=== PATIENT | male | born 1985 | race Caucasian/White ===

== ENCOUNTER 2018-02-21 09:25 | Emergency (ER) | payer OTHER ==
[~2018-02-21] VITALS: Ht 182.9 cm; Wt 59.0 kg
[~2018-02-21 09:25] MED LIST: AUGMENTIN 875875 MG PO; BALSALAZIDE DI750 M1 PO; CARAFATE1 GM/10 ML PO; DULCOLAX STOOL100 MG PO; HYDROCODONE-APA1 TA1 PO; KEPPRA 500 MG500 M1 PO; MIRALAX17 GM PO; NORCO 5-325 TA1 EACH PO; PEPCID20 MG PO; PREDNISONE 10 M10 MG PO; SENNA-S TABLET1 EACH PO; ZOFRAN ODT4 MG PO
[2018-02-21] MEDS ORDERED: KEFLEX500 M1 PO (10:25)
== END 2018-02-21 10:38 | disposition home or self-care (01) ==
LOC: ER 09:25
DX: S61.212A Laceration without foreign body of right middle finger without damage to nail, initial encounter (principal); F17.210 Nicotine dependence, cigarettes, uncomplicated; K50.90 Crohn's disease, unspecified, without complications; W26.0XXA Contact with knife, initial encounter; Y92.89 Other specified places as the place of occurrence of the external cause; Y93.89 Activity, other specified; Y99.8 Other external cause status

== ENCOUNTER 2018-03-01 12:06 | Emergency (ER) | payer OTHER ==
[~2018-03-01] VITALS: Ht 182.9 cm; Wt 59.0 kg
[~2018-03-01 12:06] MED LIST changes: +KEFLEX500 M1 PO
== END 2018-03-01 12:36 | disposition home or self-care (01) ==
LOC: ER 12:06
DX: S61.212D Laceration without foreign body of right middle finger without damage to nail, subsequent encounter (principal); F17.210 Nicotine dependence, cigarettes, uncomplicated; X58.XXXD Exposure to other specified factors, subsequent encounter

== ENCOUNTER 2018-07-15 18:07 | Emergency (ER) | payer OTHER ==
[~2018-07-15] VITALS: Ht 182.9 cm; Wt 59.0 kg
[2018-07-15 18:40] LABS: ABSOLUTE NEUTROPHILS 4.3 thou/uL (1.4-8.2); BASOPHILS 0.4 % (0.0-2.0); EOSINOPHILS 1.1 % (0.0-3.0); HEMATOCRIT 41.9 % (42.0-52.0); HEMOGLOBIN 14.3 gm/dL (14.0-18.0); LYMPHOCYTES 29.2 % (24.0-44.0); MCH 31.8 pg (26.0-34.0); MCHC 34.1 g/dL (28.0-37.0); MONOCYTES 6.4 % (1.0-8.0); PLATELET COUNT 291 thou/uL (150-400); POLYS 62.9 % (36.0-66.0); RBC 4.51 mil/uL (4.50-6.00); RDW 13.3 % (10.5-14.5); WBC 6.8 thou/uL (4.0-11.0)
[2018-07-15 18:44] LABS: CALCIUM 9.8 mg/dL (8.5-10.1); POTASSIUM 3.6 mmol/L (3.5-5.1)
[2018-07-15 18:50] LABS: ALBUMIN 4.1 g/dL (3.4-5.0); TOTAL BILIRUBIN 1.3 mg/dL (<0.1-1.0); TOTAL PROTEIN 7.3 g/dL (6.4-8.2)
[2018-07-15] MEDS ORDERED: UNICOMPLEX M TA1 TA1 PO (18:53)
[2018-07-15] MEDS ORDERED: METHOTREXATE 22.5 MG PO (18:54)
[2018-07-15 19:38] LABS: URINE BILIRUBIN NEGATIVE (Negative); URINE BLOOD NEGATIVE (Negative); URINE CLARITY CLEAR; URINE COLOR YELLOW; URINE GLUCOSE-RANDOM* NEGATIVE (Negative); URINE KETONES NEGATIVE (Negative); URINE LEUKOCYTES-REFLEX NEGATIVE (Negative); URINE NITRITE-REFLEX NEGATIVE (Negative); URINE PROTEIN (DIPSTICK) NEGATIVE (Negative); URINE SPECIFIC GRAVITY >= 1.030 (1.005-1.035); URINE UROBILINOGEN 0.2 E.U./dl (0.2-1.0)
[2018-07-15] MEDS ORDERED: PHENERGAN 25 MG25 M1 PO (21:02)
[2018-07-15] MEDS ORDERED: NORCO 5-325 TA1 EACH PO (21:02)
[2018-07-15] MEDS ORDERED: PREDNISONE 10 M10 M1 PO (21:02)
[2018-07-15] MEDS ORDERED: ZOFRAN ODT4 MG PO (21:02)
[2018-07-15 21:14] VITALS: BP 111/79
== END 2018-07-15 21:14 | disposition home or self-care (01) ==
LOC: ER 18:07
PROVIDERS: Emergency Medicine
DX: K50.90 Crohn's disease, unspecified, without complications (principal); R11.2 Nausea with vomiting, unspecified; F17.210 Nicotine dependence, cigarettes, uncomplicated

== ENCOUNTER 2018-10-30 07:34 | Emergency (ER) | payer OTHER ==
[~2018-10-30] VITALS: Ht 182.9 cm; Wt 59.0 kg
[~2018-10-30 07:34] MED LIST changes: +METHOTREXATE 22.5 MG PO; +PHENERGAN 25 MG25 M1 PO; +PREDNISONE 10 M10 M1 PO; +UNICOMPLEX M TA1 TA1 PO
[2018-10-30 07:55] LABS: URINE BLOOD NEGATIVE (Negative); URINE CLARITY CLEAR; URINE COLOR YELLOW; URINE GLUCOSE-RANDOM* NEGATIVE (Negative); URINE KETONES NEGATIVE (Negative); URINE LEUKOCYTES-REFLEX NEGATIVE (Negative); URINE NITRITE-REFLEX NEGATIVE (Negative); URINE PROTEIN (DIPSTICK) 2+ (Negative); URINE SPECIFIC GRAVITY >= 1.030 (1.005-1.035); URINE UROBILINOGEN 0.2 E.U./dl (0.2-1.0)
[2018-10-30 07:58] LABS: ICTOTEST (BILI CONFIRMATORY) Negative (Negative); URINE BILIRUBIN NEGATIVE (Negative)
[2018-10-30 08:03] LABS: CRYSTALS None Seen /LPF (None Seen); FINE GRANULAR CASTS 0-3 Few /LPF (None Seen); HYALINE CASTS 0-3 Few /LPF (None Seen); SQUAMOUS None Seen /LPF (0-3)
[2018-10-30 08:04] LABS: BACTERIA-REFLEX 1-9 Few /HPF (None Seen); URINE WBC-REFLEX 0-5 Rare /HPF (0-5)
[2018-10-30 08:05] LABS: URINE RBC None Seen /HPF (0-2)
[2018-10-30 08:06] LABS: MUCUS 0-3 Light strn/LPF (None Seen)
[2018-10-30 08:16] LABS: ABSOLUTE NEUTROPHILS 5.5 thou/uL (1.4-8.2); BASOPHILS 0.5 % (0.0-2.0); EOSINOPHILS 1.2 % (0.0-3.0); HEMOGLOBIN 15.4 gm/dL (14.0-18.0); LYMPHOCYTES 17.3 % (24.0-44.0); MCH 32.2 pg (26.0-34.0); MCHC 34.3 g/dL (28.0-37.0); MCV 93.9 fL (80.0-100.0); MONOCYTES 4.5 % (1.0-8.0); PLATELET COUNT 300 thou/uL (150-400); POLYS 76.5 % (36.0-66.0); RBC 4.79 mil/uL (4.50-6.00); RDW 13.7 % (10.5-14.5); WBC 7.2 thou/uL (4.0-11.0)
[2018-10-30 08:24] LABS: CALCIUM 9.5 mg/dL (8.5-10.1); CREATININE 1.1 mg/dL (0.7-1.3); POTASSIUM 3.7 mmol/L (3.5-5.1)
[2018-10-30 08:30] LABS: ALBUMIN 4.2 g/dL (3.4-5.0); TOTAL PROTEIN 7.6 g/dL (6.4-8.2)
--- NOTE | 2018-10-30 09:19 | NUR ---
Nutrition: Received consult per pt request to discuss Chrons diet. Hx Chrons x 3 years and has received past education but had forgotten many aspects. RD reviewed and offered suggestions, provided materials. pt was receptive. Expect compliance.
[2018-10-30] MEDS ORDERED: BENTYL 20 MG TA20 M1 PO (10:22)
[2018-10-30] MEDS ORDERED: PREDNISONE 20 M20 MG PO (10:22)
[2018-10-30 10:29] VITALS: BP 103/71
== END 2018-10-30 10:30 | disposition home or self-care (01) ==
LOC: ER 07:34
PROVIDERS: Emergency Medicine
DX: K52.89 Other specified noninfective gastroenteritis and colitis (principal); F17.210 Nicotine dependence, cigarettes, uncomplicated

== ENCOUNTER 2019-03-22 11:47 | Emergency (ER) | payer OTHER ==
[~2019-03-22] VITALS: Ht 182.9 cm; Wt 59.0 kg
[~2019-03-22 11:47] MED LIST changes: +BENTYL 20 MG TA20 M1 PO; +PREDNISONE 20 M20 MG PO
[2019-03-22 12:24] LABS: BASOPHILS 0.8 % (0.0-2.0); EOSINOPHILS 5.5 % (0.0-3.0); HEMATOCRIT 47.1 % (42.0-52.0); HEMOGLOBIN 15.6 gm/dL (14.0-18.0); LYMPHOCYTES 34.1 % (24.0-44.0); MCH 31.8 pg (26.0-34.0); MCV 96.3 fL (80.0-100.0); PLATELET COUNT 346 thou/uL (150-400); POLYS 52.6 % (36.0-66.0); RBC 4.89 mil/uL (4.50-6.00); RDW 13.4 % (10.5-14.5); WBC 5.7 thou/uL (4.0-11.0)
[2019-03-22 12:26] LABS: CALCIUM 9.9 mg/dL (8.5-10.1); CREATININE 1.2 mg/dL (0.7-1.3); POTASSIUM 3.7 mmol/L (3.5-5.1)
[2019-03-22 12:33] LABS: ALBUMIN 4.1 g/dL (3.4-5.0); TOTAL PROTEIN 7.3 g/dL (6.4-8.2)
[2019-03-22 13:31] LABS: URINE BILIRUBIN NEGATIVE (Negative); URINE BLOOD NEGATIVE (Negative); URINE CLARITY CLEAR; URINE COLOR YELLOW; URINE GLUCOSE-RANDOM* NEGATIVE (Negative); URINE KETONES NEGATIVE (Negative); URINE LEUKOCYTES-REFLEX NEGATIVE (Negative); URINE NITRITE-REFLEX NEGATIVE (Negative); URINE PROTEIN (DIPSTICK) NEGATIVE (Negative); URINE SPECIFIC GRAVITY 1.015 (1.005-1.035); URINE UROBILINOGEN 0.2 E.U./dl (0.2-1.0)
[2019-03-22] MEDS ORDERED: PROMS25 WY RECTAL (13:45)
[2019-03-22] MEDS ORDERED: ZOFRAN ODT4 MG DISSOLVE (13:45)
[2019-03-22] MEDS ORDERED: PREDNISONE 10 M10 MG PO (13:45)
[2019-03-22 13:47] VITALS: BP 105/66
== END 2019-03-22 13:47 | disposition home or self-care (01) ==
LOC: ER 11:47
PROVIDERS: Physician Assistant
DX: K50.90 Crohn's disease, unspecified, without complications (principal); E86.0 Dehydration; R11.2 Nausea with vomiting, unspecified; R10.13 Epigastric pain; F17.210 Nicotine dependence, cigarettes, uncomplicated

== ENCOUNTER 2019-04-18 15:33 | Emergency (ER) | payer OTHER ==
[~2019-04-18] VITALS: Ht 182.9 cm; Wt 60.8 kg
[~2019-04-18 15:33] MED LIST changes: +PROMS25 WY RECTAL; +ZOFRAN ODT4 MG DISSOLVE
[2019-04-18 15:52] LABS: URINE BILIRUBIN NEGATIVE (Negative); URINE BLOOD NEGATIVE (Negative); URINE CLARITY CLEAR; URINE COLOR YELLOW; URINE GLUCOSE-RANDOM* NEGATIVE (Negative); URINE KETONES NEGATIVE (Negative); URINE LEUKOCYTES-REFLEX NEGATIVE (Negative); URINE NITRITE-REFLEX NEGATIVE (Negative); URINE PROTEIN (DIPSTICK) NEGATIVE (Negative); URINE SPECIFIC GRAVITY 1.025 (1.005-1.035); URINE UROBILINOGEN 0.2 E.U./dl (0.2-1.0)
[2019-04-18 16:25] LABS: ABSOLUTE NEUTROPHILS 5.9 thou/uL (1.4-8.2); BASOPHILS 0.4 % (0.0-2.0); EOSINOPHILS 0.5 % (0.0-3.0); HEMATOCRIT 42.2 % (42.0-52.0); HEMOGLOBIN 13.9 gm/dL (14.0-18.0); LYMPHOCYTES 25.1 % (24.0-44.0); MCH 31.3 pg (26.0-34.0); MCHC 32.9 g/dL (28.0-37.0); MCV 95.2 fL (80.0-100.0); PLATELET COUNT 294 thou/uL (150-400); RBC 4.43 mil/uL (4.50-6.00); RDW 13.4 % (10.5-14.5); WBC 8.4 thou/uL (4.0-11.0)
[2019-04-18 16:33] LABS: CALCIUM 9.4 mg/dL (8.5-10.1); POTASSIUM 4.3 mmol/L (3.5-5.1)
[2019-04-18 16:39] LABS: ALBUMIN 3.8 g/dL (3.4-5.0); TOTAL BILIRUBIN 0.4 mg/dL (<0.1-1.0); TOTAL PROTEIN 6.9 g/dL (6.4-8.2)
[2019-04-18] MEDS ORDERED: ZOFRAN ODT4 MG PO (17:33)
[2019-04-18] MEDS ORDERED: BENTYL 20 MG TA20 M1 PO (17:34)
[2019-04-18 17:55] VITALS: BP 112/67
== END 2019-04-18 17:50 | disposition home or self-care (01) ==
LOC: ER 15:33
PROVIDERS: Nurse Practitioner Family
DX: K51.90 Ulcerative colitis, unspecified, without complications (principal); R10.84 Generalized abdominal pain; R11.0 Nausea; R42 Dizziness and giddiness; F17.210 Nicotine dependence, cigarettes, uncomplicated; F12.90 Cannabis use, unspecified, uncomplicated; Z79.899 Other long term (current) drug therapy; Z87.820 Personal history of traumatic brain injury

== ENCOUNTER 2019-04-27 13:04 | Emergency (ER) | payer OTHER ==
[~2019-04-27] VITALS: Ht 182.9 cm; Wt 59.0 kg
[2019-04-27] MEDS ORDERED: LEXAPRO20 MG PO (13:15)
[2019-04-27] MEDS ORDERED: STELARA45 MG/0.1 SUBQ (13:15)
[2019-04-27 14:39] LABS: ABSOLUTE NEUTROPHILS 4.8 thou/uL (1.4-8.2); BASOPHILS 0.5 % (0.0-2.0); EOSINOPHILS 1.5 % (0.0-3.0); HEMATOCRIT 40.6 % (42.0-52.0); HEMOGLOBIN 13.3 gm/dL (14.0-18.0); LYMPHOCYTES 27.6 % (24.0-44.0); MCH 31.5 pg (26.0-34.0); MCHC 32.8 g/dL (28.0-37.0); MONOCYTES 6.1 % (1.0-8.0); PLATELET COUNT 278 thou/uL (150-400); POLYS 64.3 % (36.0-66.0); RBC 4.22 mil/uL (4.50-6.00); RDW 13.8 % (10.5-14.5); WBC 7.5 thou/uL (4.0-11.0)
[2019-04-27 14:40] LABS: URINE BILIRUBIN NEGATIVE (Negative); URINE BLOOD NEGATIVE (Negative); URINE CLARITY CLEAR; URINE COLOR YELLOW; URINE GLUCOSE-RANDOM* NEGATIVE (Negative); URINE KETONES NEGATIVE (Negative); URINE LEUKOCYTES-REFLEX NEGATIVE (Negative); URINE NITRITE-REFLEX NEGATIVE (Negative); URINE PROTEIN (DIPSTICK) NEGATIVE (Negative); URINE SPECIFIC GRAVITY 1.015 (1.005-1.035); URINE UROBILINOGEN 0.2 E.U./dl (0.2-1.0)
[2019-04-27 14:49] LABS: CALCIUM 9.2 mg/dL (8.5-10.1); CREATININE 0.8 mg/dL (0.7-1.3); POTASSIUM 4.1 mmol/L (3.5-5.1)
[2019-04-27 14:55] LABS: ALBUMIN 3.8 g/dL (3.4-5.0); TOTAL BILIRUBIN 0.5 mg/dL (<0.1-1.0); TOTAL PROTEIN 6.7 g/dL (6.4-8.2)
[2019-04-27] MEDS ORDERED: REGLAN 10 MG TA10 MG PO (15:00)
[2019-04-27] MEDS ORDERED: BENTYL 20 MG TA20 M1 PO (15:00)
[2019-04-27 16:08] VITALS: BP 111/67
== END 2019-04-27 16:00 | disposition home or self-care (01) ==
LOC: ER 13:04
PROVIDERS: Emergency Medicine; Nurse Practitioner Family
DX: K58.0 Irritable bowel syndrome with diarrhea (principal); F12.90 Cannabis use, unspecified, uncomplicated; F17.210 Nicotine dependence, cigarettes, uncomplicated

== ENCOUNTER 2020-04-11 10:53 | Emergency (ER) | payer OTHER ==
[~2020-04-11] VITALS: Ht 180.3 cm; Wt 59.0 kg
[~2020-04-11 10:53] MED LIST changes: +LEXAPRO20 MG PO; +REGLAN 10 MG TA10 MG PO; +STELARA45 MG/0.1 SUBQ
[2020-04-11 12:16] LABS: URINE BILIRUBIN NEGATIVE (Negative); URINE BLOOD NEGATIVE (Negative); URINE CLARITY CLEAR; URINE COLOR YELLOW; URINE GLUCOSE-RANDOM* NEGATIVE (Negative); URINE KETONES NEGATIVE (Negative); URINE LEUKOCYTES-REFLEX NEGATIVE (Negative); URINE NITRITE-REFLEX NEGATIVE (Negative); URINE PROTEIN (DIPSTICK) 1+ (Negative); URINE UROBILINOGEN 0.2 E.U./dl (0.2-1.0)
[2020-04-11 12:21] LABS: ABSOLUTE NEUTROPHILS 4.4 thou/uL (1.4-8.2); BASOPHILS 0.5 % (0.0-2.0); HEMATOCRIT 41.1 % (42.0-52.0); HEMOGLOBIN 13.7 gm/dL (14.0-18.0); LYMPHOCYTES 26.4 % (24.0-44.0); MCH 31.9 pg (26.0-34.0); MCHC 33.4 g/dL (28.0-37.0); MCV 95.6 fL (80.0-100.0); MONOCYTES 6.6 % (1.0-8.0); PLATELET COUNT 286 thou/uL (150-400); POLYS 65.5 % (36.0-66.0); RDW 13.7 % (10.5-14.5); WBC 6.6 thou/uL (4.0-11.0)
[2020-04-11 12:24] LABS: ANION GAP 11 mmol/L (7-16); BUN 18 mg/dL (7-18); CALCIUM 9.1 mg/dL (8.5-10.1); CHLORIDE 106 mmol/L (98-107); CO2 24 mmol/L (21-32); CREATININE 1.1 mg/dL (0.7-1.3); GLUCOSE 111 mg/dL (74-106); POTASSIUM 3.9 mmol/L (3.5-5.1); SODIUM 141 mmol/L (136-145)
[2020-04-11 12:34] LABS: ALBUMIN 4.1 g/dL (3.4-5.0); LIPASE 163 U/L (73-393); SGOT 37 U/L (15-37); SGPT 63 U/L (30-65); TOTAL BILIRUBIN 0.9 mg/dL (0.2-1.0); TOTAL PROTEIN 6.8 g/dL (6.4-8.2); TROPONIN-I <0.06 ng/mL (<0.06)
[2020-04-11 12:39] LABS: BACTERIA-REFLEX 1-9 Few /HPF (None Seen); CASTS None Seen /LPF (None Seen); CRYSTALS None Seen /LPF (None Seen); MUCUS 0-3 Light strn/LPF (None Seen); SQUAMOUS 0-3 Few /LPF (0-3); URINE RBC 0-2 Rare /HPF (0-2); URINE WBC-REFLEX 0-5 Rare /HPF (0-5)
--- NOTE | 2020-04-11 12:51 | EKG ---
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1985 Requested By: Nessa Booker Order Number: [id number] MD: Mario Craven Measurements Intervals Tracy Rate: 66 P: 70 ND: 183 QRS: 75 QRSD: 81 T: 60 QT: 347 QTc: 364 Interpretive Statements Sinus rhythm J Point elev, probable normal early repol pattern Compared to ECG 03/22/2016 13:43:18 ST (T wave) deviation now present Electronically Signed On 04-11-2020 12:51:49 [employer]ER SERVICE SPECIALIST by Mario Craven [email or web address] <ELECTRONICALLY SIGNED> By: Mario Craven MD, FACC 04/11/20 1251 1152 1152 Mario Craven MD, [facility] /EPI
[2020-04-11] MEDS ORDERED: ZOFRAN ODT4 MG DISSOLVE (13:48)
[2020-04-11] MEDS ORDERED: TRAMADOL 50 MG50 MG PO (13:48)
[2020-04-11 13:52] VITALS: BP 117/73
== END 2020-04-11 13:52 | disposition home or self-care (01) ==
LOC: ER 10:53
PROVIDERS: Physician Assistant
DX: R10.13 Epigastric pain (principal); R10.12 Left upper quadrant pain; R10.32 Left lower quadrant pain; F17.210 Nicotine dependence, cigarettes, uncomplicated; Z87.19 Personal history of other diseases of the digestive system; Z79.2 Long term (current) use of antibiotics; Z79.899 Other long term (current) drug therapy; Z20.828 Contact with and (suspected) exposure to other viral communicable diseases

== ENCOUNTER 2020-05-03 22:40 | Emergency (ER) | payer OTHER ==
[~2020-05-03] VITALS: Ht 182.9 cm; Wt 59.0 kg
[~2020-05-03 22:40] MED LIST changes: +TRAMADOL 50 MG50 MG PO
[2020-05-03 23:51] LABS: ABSOLUTE NEUTROPHILS 7.4 thou/uL (1.4-8.2); BASOPHILS 0.2 % (0.0-2.0); EOSINOPHILS 0.4 % (0.0-3.0); HEMATOCRIT 40.9 % (42.0-52.0); HEMOGLOBIN 13.5 gm/dL (14.0-18.0); LYMPHOCYTES 20.1 % (24.0-44.0); MCH 31.4 pg (26.0-34.0); MCHC 33.1 g/dL (28.0-37.0); MCV 94.8 fL (80.0-100.0); MONOCYTES 7.5 % (1.0-8.0); PLATELET COUNT 293 thou/uL (150-400); POLYS 71.8 % (36.0-66.0); RBC 4.31 mil/uL (4.50-6.00); RDW 14.4 % (10.5-14.5); WBC 10.2 thou/uL (4.0-11.0)
[2020-05-03 23:58] LABS: CALCIUM 9.6 mg/dL (8.5-10.1); CREATININE 1.1 mg/dL (0.7-1.3); POTASSIUM 3.4 mmol/L (3.5-5.1)
[2020-05-04 00:04] LABS: ALBUMIN 4.3 g/dL (3.4-5.0); TOTAL BILIRUBIN 0.7 mg/dL (0.2-1.0); TOTAL PROTEIN 7.1 g/dL (6.4-8.2)
[2020-05-04 08:52] VITALS: BP 132/68
== END 2020-05-04 08:54 | disposition home or self-care (01) ==
LOC: ER 22:40
PROVIDERS: Emergency Medicine
DX: K50.00 Crohn's disease of small intestine without complications (principal); F17.210 Nicotine dependence, cigarettes, uncomplicated; Z79.899 Other long term (current) drug therapy

== ENCOUNTER 2020-07-29 14:48 | Emergency (ER) | payer OTHER ==
[2020-07-29 16:01] LABS: URINE BLOOD NEGATIVE (Negative); URINE CLARITY CLEAR; URINE COLOR YELLOW; URINE GLUCOSE-RANDOM* NEGATIVE (Negative); URINE KETONES TRACE (Negative); URINE LEUKOCYTES-REFLEX NEGATIVE (Negative); URINE NITRITE-REFLEX NEGATIVE (Negative); URINE PROTEIN (DIPSTICK) 1+ (Negative); URINE SPECIFIC GRAVITY >= 1.030 (1.005-1.035)
[2020-07-29 16:03] LABS: ICTOTEST (BILI CONFIRMATORY) Negative (Negative); URINE BILIRUBIN NEGATIVE (Negative)
[2020-07-29 16:10] LABS: BACTERIA-REFLEX 1-9 Few /HPF (None Seen); CASTS None Seen /LPF (None Seen); CRYSTALS None Seen /LPF (None Seen); MUCUS 4-6 Moderate strn/LPF (None Seen); SQUAMOUS None Seen /LPF (0-3); URINE RBC None Seen /HPF (0-2); URINE WBC-REFLEX 0-5 Rare /HPF (0-5)
[2020-07-29 17:22] LABS: HEMATOCRIT 44.2 % (42.0-52.0); HEMOGLOBIN 14.4 gm/dL (14.0-18.0); MCH 31.1 pg (26.0-34.0); MCHC 32.6 g/dL (28.0-37.0); MCV 95.3 fL (80.0-100.0); RBC 4.64 mil/uL (4.50-6.00); WBC 7.1 thou/uL (4.0-11.0)
[2020-07-29 17:33] LABS: CALCIUM 9.3 mg/dL (8.5-10.1); CREATININE 1.3 mg/dL (0.7-1.3); POTASSIUM 3.9 mmol/L (3.5-5.1)
[2020-07-29 17:41] LABS: ALBUMIN 4.3 g/dL (3.4-5.0); TOTAL BILIRUBIN 1.6 mg/dL (0.2-1.0); TOTAL PROTEIN 7.2 g/dL (6.4-8.2)
[2020-07-29 18:29] VITALS: BP 103/67
== END 2020-07-29 18:51 | disposition left against medical advice (07) ==
LOC: ER 14:48
PROVIDERS: Nurse Practitioner Family
DX: K50.90 Crohn's disease, unspecified, without complications (principal); R11.0 Nausea; F17.210 Nicotine dependence, cigarettes, uncomplicated; Z79.899 Other long term (current) drug therapy